=== PATIENT | male | born 1955 | race Caucasian/White ===

== ENCOUNTER → 2019-12-14 | Day surgery (SDC) | payer OTHER ==
[~2019-12-14] VITALS: Ht 177.8 cm; Wt 65.3 kg
[~2019-12-14] MED LIST: ALBUAER3 IN; BUPIVACAINE 0.25% INJ 50ML VIAL ONE; CYCL1TAB18 PO; GLYCOPYRROLATE 0.2 MG/ML 1ML VIAL ONE; HYDROmorphone HCL 2 MG/ML VL IV PRN; HYDROmorphone HCL 2 MG/ML VL ONE; KETOROLAC TROMETH 60MG/2ML VIAL ONE; LIDOCAINE 1% HCL (LOCAL ANESTH.) INJ 20ML MDV ONE; MEPERIDINE HCL (25 MG/ML) 1ML VIAL ONE; METOCLOPRAMIDE HCL 5MG/ml INJ 2ml VIAL IV PRN; MIDAZOLAM HCL 1MG/1ML-2 ML VIAL ONE; MORPHINE SULFATE 4 MG/ML SYR/VIAL IV PRN; NEOSTIGMINE 1 MG/ML INJ (10mg/10ML VIAL) ONE; ONDANSETRON HCL 4 MG/2 ML VIAL ONE; PROPOFOL 10 MG/ML 20 ML IV ONE; ROCURONIUM 10MG/ML 10ML VIAL IV ONE; SODIUM CHLORIDE LOCK 10 ML ONE; TRAM-711 PO; ceFAZolin 1GM VL ONE; fentaNYL CITRATE 100 MCG/2 ML VL IV PRN; fentaNYL CITRATE 100 MCG/2 ML VL ONE; fentaNYL CITRATE 5 ML ONE
[2019-12-14 12:52] VITALS: BP 154/94
== END | disposition home or self-care (01) ==
LOC: SUR 07:18
PROVIDERS: ATTEND Surgery
DX: K40.90 Unilateral inguinal hernia, without obstruction or gangrene, not specified as recurrent (principal); J44.9 Chronic obstructive pulmonary disease, unspecified; I48.91 Unspecified atrial fibrillation; Z87.891 Personal history of nicotine dependence; Z88.0 Allergy status to penicillin; Z79.899 Other long term (current) drug therapy; Z98.890 Other specified postprocedural states
CPT/HCPCS: 49650; C1713; C1781; J1170; J1885; J2001; J2175; J2250; J2270; J2405; J2704; J3010; J3490; J7030; S2900; J0690